=== PATIENT | female | born 1940 | race Caucasian/White ===

== ENCOUNTER 2016-03-31 10:56 | Outpatient (CLI) | payer MEDICARE, OTHER | END 2016-03-31 10:57 | disposition home or self-care (01) | DX: Z12.31 Encounter for screening mammogram for malignant neoplasm of breast (principal) ==

== ENCOUNTER 2016-07-26 11:03 | Outpatient (CLI) | payer MEDICARE, OTHER | END 2016-07-26 11:04 | disposition short-term general hospital (02) | DX: R41.82 Altered mental status, unspecified (principal) | CPT/HCPCS: A0170; A0425; A0429 ==

== ENCOUNTER 2016-09-21 11:07 | Outpatient (CLI) | payer MEDICARE, OTHER | END 2016-09-21 11:08 | disposition short-term general hospital (02) | LOC: EMS 11:07 | PROVIDERS: ATTEND Surgery | DX: R53.1 Weakness (principal); R20.0 Anesthesia of skin; R47.9 Unspecified speech disturbances | CPT/HCPCS: A0170; A0425; A0429 ==

== ENCOUNTER 2016-09-25 09:47 | Outpatient (CLI) | payer MEDICARE, OTHER ==
[2016-09-25 18:06] LABS: CALCIUM 9.3 mg/dL (8.5-10.3); POTASSIUM 4.4 mmol/L (3.5-5.0)
== END 2016-09-25 09:48 | disposition home or self-care (01) ==
LOC: LAB.F 09:47
PROVIDERS: ATTEND Internal Medicine
DX: E87.6 Hypokalemia (principal); I10 Essential (primary) hypertension; F41.8 Other specified anxiety disorders; I63.40 Cerebral infarction due to embolism of unspecified cerebral artery
CPT/HCPCS: 36415; 80048

== ENCOUNTER 2016-10-16 09:00 | Outpatient (CLI) | payer MEDICARE, OTHER ==
[2016-10-16 18:00] LABS: ALBUMIN/GLOBULIN RATIO 1.2 (1.0-2.2); BILIRUBIN,TOTAL 1.2 mg/dL (0.2-1.0); CALCIUM 9.2 mg/dL (8.5-10.3); CREATININE 0.7 mg/dL (0.4-1.0); POTASSIUM 3.7 mmol/L (3.5-5.0); TOTAL PROTEIN 6.7 g/dL (6.7-8.2)
== END 2016-10-16 09:01 | disposition home or self-care (01) ==
LOC: LAB.F 09:00
PROVIDERS: ATTEND Physician Assistant Medical
DX: E87.6 Hypokalemia (principal)
CPT/HCPCS: 36415; 80053

== ENCOUNTER 2016-10-28 07:12 | Outpatient (CLI) | payer MEDICARE, OTHER ==
[2016-11-05 11:26] LABS: TEST RESULT REPORT (())
== END 2016-10-28 07:13 | disposition home or self-care (01) ==
LOC: LAB.F 07:12
PROVIDERS: ATTEND Internal Medicine
DX: D68.9 Coagulation defect, unspecified (principal); I63.40 Cerebral infarction due to embolism of unspecified cerebral artery
CPT/HCPCS: 36415; 81599; 85598; 85613; 85730; 86146; 86147

== ENCOUNTER 2016-11-12 08:00 | Outpatient (CLI) | payer MEDICARE, OTHER ==
[2016-11-12 12:36] LABS: ALBUMIN/GLOBULIN RATIO 1.3 (1.0-2.2); BILIRUBIN,TOTAL 1.1 mg/dL (0.2-1.0); CALCIUM 9.4 mg/dL (8.5-10.3); CREATININE 0.6 mg/dL (0.4-1.0); POTASSIUM 3.9 mmol/L (3.5-5.0); TOTAL PROTEIN 6.9 g/dL (6.7-8.2)
== END 2016-11-12 08:01 | disposition home or self-care (01) ==
LOC: LAB.F 08:00
PROVIDERS: ATTEND Physician Assistant Medical
DX: E87.6 Hypokalemia (principal)
CPT/HCPCS: 36415; 80053

== ENCOUNTER 2016-11-16 17:05 | Outpatient (CLI) | payer MEDICARE, OTHER ==
--- NOTE | 2016-11-17 09:07 | Ultrasound Report ---
EXAM: RIGHT LOWER EXTREMITY VENOUS ULTRASOUND EXAM DATE: 11/16/2016 05:08 PM. CLINICAL HISTORY: PAIN IN RIGHT LOWER LIMB. COMPARISON: None. TECHNIQUE: Real-time sonographic vascular imaging was performed by the well cleaner through the lower extremity utilizing both color-flow and Doppler spectral analysis. Multiple marketing development representative static adi ges were saved for review. FINDINGS: Common Femoral Vein (CFV): Normal. CFV-GSV Junction: Normal. Profunda Femoral Vein (PFV): Normal. Femoral Vein (FV) Prox: Normal. Femoral Vein (FV) Mid: Normal. Femoral Vein (FV) Dist: Normal. Popliteal Vein: Normal. Posterior Tibial Veins: Normal. Peroneal Veins: Normal. Contralateral Side CFV: Normal. Other: None. IMPRESSION: No evidence for deep venous thrombosis in the right lower extremity. [facility] Referring Provider Line: [phone] SITE ID: [id number]
== END 2016-11-16 17:06 | disposition home or self-care (01) ==
LOC: DI 17:05
PROVIDERS: ATTEND Physician Assistant Medical
DX: M79.604 Pain in right leg (principal)

== ENCOUNTER 2017-01-01 08:36 | Outpatient (CLI) | payer MEDICARE, OTHER ==
[2017-01-01 11:46] LABS: ALBUMIN/GLOBULIN RATIO 1.1 (1.0-2.2); BILIRUBIN,TOTAL 0.6 mg/dL (0.2-1.0); CALCIUM 9.7 mg/dL (8.5-10.3); CREATININE 0.6 mg/dL (0.4-1.0); POTASSIUM 3.7 mmol/L (3.5-5.0); TOTAL PROTEIN 7.3 g/dL (6.7-8.2)
== END 2017-01-01 08:37 | disposition home or self-care (01) ==
LOC: LAB.F 08:36
PROVIDERS: ATTEND Physician Assistant Medical
DX: Z86.39 Personal history of other endocrine, nutritional and metabolic disease (principal); I48.4 Atypical atrial flutter; I10 Essential (primary) hypertension
CPT/HCPCS: 36415; 80053; 85610

== ENCOUNTER 2017-01-13 10:47 | Outpatient (CLI) | payer MEDICARE, OTHER | END 2017-01-13 10:48 | disposition home or self-care (01) | LOC: LAB.F 10:47 | PROVIDERS: ATTEND Physician Assistant Medical | DX: Z79.01 Long term (current) use of anticoagulants (principal) | CPT/HCPCS: 85610 ==

== ENCOUNTER 2017-01-18 08:56 | Outpatient (CLI) | payer MEDICARE, OTHER | END 2017-01-18 08:57 | disposition home or self-care (01) | LOC: LAB.F 08:56 | PROVIDERS: ATTEND Physician Assistant Medical | DX: Z79.01 Long term (current) use of anticoagulants (principal) | CPT/HCPCS: 85610 ==

== ENCOUNTER 2017-03-09 08:49 | Outpatient (CLI) | payer MEDICARE, OTHER | END 2017-03-09 08:50 | disposition home or self-care (01) | LOC: LAB.F 08:49 | PROVIDERS: ATTEND Physician Assistant Medical | DX: E03.9 Hypothyroidism, unspecified (principal) | CPT/HCPCS: 36415; 84443; 84481 ==

== ENCOUNTER 2017-03-10 10:04 | Outpatient (CLI) | payer MEDICARE, OTHER | END 2017-03-10 10:05 | disposition home or self-care (01) | LOC: LAB.F 10:04 | PROVIDERS: ATTEND Physician Assistant Medical | DX: Z53.9 Procedure and treatment not carried out, unspecified reason (principal) ==

== ENCOUNTER 2017-03-12 08:51 | Outpatient (CLI) | payer MEDICARE, OTHER | END 2017-03-12 08:52 | disposition home or self-care (01) | LOC: LAB.F 08:51 | PROVIDERS: ATTEND Physician Assistant Medical | DX: E55.9 Vitamin D deficiency, unspecified (principal) | CPT/HCPCS: 36415; 82306 ==

== ENCOUNTER 2017-06-03 07:16 | Outpatient (CLI) | payer MEDICARE, OTHER ==
[2017-06-03 10:25] LABS: BASOPHILS % (AUTO) 0.8 %; EOSINOPHILS # (AUTO) 0.1 10^3/uL (0.0-0.7); EOSINOPHILS % (AUTO) 2.6 %; HGB - HEMOGLOBIN 13.8 g/dL (12.0-16.0); LYMPHOCYTES # (AUTO) 1.4 10^3/uL (1.5-3.5); LYMPHOCYTES % (AUTO) 35.6 %; MEAN CORPUSCULAR HEMOGLOBIN 31.2 pg (27.0-31.0); MEAN CORPUSCULAR VOLUME 91.9 fL (81.0-99.0); MEAN PLATELET VOLUME 8.5 fL (7.9-10.8); MONOCYTES # (AUTO) 0.3 10^3/uL (0.0-1.0); MONOCYTES % (AUTO) 8.7 %; NEUTROPHILS % (AUTO) 52.3 %; PLT - PLATELET COUNT 129 10^3/uL (130-450); RED BLOOD COUNT 4.42 10^6/uL (4.20-5.40); RED CELL DISTRIBUTION WIDTH 12.9 % (12.0-15.0); WHITE BLOOD COUNT 3.9 x10^3/uL (4.8-10.8)
[2017-06-03 10:40] LABS: ALBUMIN 3.5 g/dL (3.2-5.5); ALBUMIN/GLOBULIN RATIO 1.1 (1.0-2.2); ALKALINE PHOSPHATASE 83 IU/L (42-121); ALT ALANINE AMINOTRANSFERASE 20 IU/L (10-60); AST ASPARTATE AMINOTRANSFERASE 30 IU/L (10-42); BILIRUBIN,TOTAL 0.7 mg/dL (0.2-1.0); BUN - BLOOD UREA NITROGEN 16 mg/dL (6-20); CALCIUM 9.2 mg/dL (8.5-10.3); CARBON DIOXIDE - CO2 28 mmol/L (21-32); CHLORIDE 107 mmol/L (101-111); CHOL/HDL RATIO 2.8 (<4.4); CHOLESTEROL 130 mg/dL; CREATININE 0.6 mg/dL (0.4-1.0); GFR - MDRD 98 (>89); GLUCOSE 100 mg/dL (70-100); HDL CHOLESTEROL 46 mg/dL; LDL CHOLESTEROL,CALCULATED 68 mg/dL; LDL/HDL RATIO 1.5 (<4.4); SODIUM 143 mmol/L (135-145); TOTAL PROTEIN 6.8 g/dL (6.7-8.2); VLDL CHOLESTEROL 16 mg/dL
[2017-06-03 10:48] LABS: THYROID STIMULATING HORMONE < 0.08 uIU/mL (0.34-5.60)
[2017-06-03 12:10] LABS: FREE T4 (FREE THYROXINE) 1.45 ng/dL (0.58-1.64)
== END 2017-06-03 07:17 | disposition home or self-care (01) ==
LOC: LAB.F 07:16
PROVIDERS: ATTEND Physician Assistant Medical
DX: Z86.39 Personal history of other endocrine, nutritional and metabolic disease (principal); E78.5 Hyperlipidemia, unspecified; E03.9 Hypothyroidism, unspecified; E04.1 Nontoxic single thyroid nodule; D68.9 Coagulation defect, unspecified; I63.40 Cerebral infarction due to embolism of unspecified cerebral artery
CPT/HCPCS: 36415; 80053; 80061; 83721; 84439; 84443; 85025

== ENCOUNTER 2017-08-25 08:27 | Outpatient (CLI) | payer MEDICARE, OTHER ==
[2017-08-25 10:44] LABS: BASOPHILS % (AUTO) 0.9 %; EOSINOPHILS # (AUTO) 0.1 10^3/uL (0.0-0.7); EOSINOPHILS % (AUTO) 2.5 %; HGB - HEMOGLOBIN 14.2 g/dL (12.0-16.0); LYMPHOCYTES # (AUTO) 1.4 10^3/uL (1.5-3.5); LYMPHOCYTES % (AUTO) 28.4 %; MEAN CORPUSCULAR HEMOGLOBIN 31.3 pg (27.0-31.0); MEAN CORPUSCULAR HGB CONC 33.9 g/dL (32.0-36.0); MEAN CORPUSCULAR VOLUME 92.2 fL (81.0-99.0); MEAN PLATELET VOLUME 8.4 fL (7.9-10.8); MONOCYTES # (AUTO) 0.4 10^3/uL (0.0-1.0); MONOCYTES % (AUTO) 7.8 %; NEUTROPHILS % (AUTO) 60.4 %; PLT - PLATELET COUNT 140 10^3/uL (130-450); RED BLOOD COUNT 4.54 10^6/uL (4.20-5.40); RED CELL DISTRIBUTION WIDTH 13.5 % (12.0-15.0); WHITE BLOOD COUNT 4.9 x10^3/uL (4.8-10.8)
[2017-08-25 11:09] LABS: ALBUMIN 3.8 g/dL (3.2-5.5); ALBUMIN/GLOBULIN RATIO 1.2 (1.0-2.2); BILIRUBIN,TOTAL 1.1 mg/dL (0.2-1.0); CALCIUM 9.1 mg/dL (8.5-10.3); CREATININE 0.6 mg/dL (0.4-1.0); TOTAL PROTEIN 7.1 g/dL (6.7-8.2)
== END 2017-08-25 08:28 | disposition home or self-care (01) ==
LOC: LAB.F 08:27
PROVIDERS: ATTEND Physician Assistant Medical
DX: E03.9 Hypothyroidism, unspecified (principal); Z79.01 Long term (current) use of anticoagulants; Z86.39 Personal history of other endocrine, nutritional and metabolic disease
CPT/HCPCS: 36415; 80053; 84443; 85025

== ENCOUNTER 2017-09-13 14:23 | Outpatient (CLI) | payer MEDICARE, OTHER ==
[2017-09-13 18:05] LABS: BASOPHILS # (AUTO) 0.1 10^3/uL (0.0-0.1); BASOPHILS % (AUTO) 0.7 %; EOSINOPHILS # (AUTO) 0.1 10^3/uL (0.0-0.7); EOSINOPHILS % (AUTO) 1.1 %; HGB - HEMOGLOBIN 14.6 g/dL (12.0-16.0); LYMPHOCYTES # (AUTO) 2.4 10^3/uL (1.5-3.5); LYMPHOCYTES % (AUTO) 33.3 %; MEAN CORPUSCULAR HEMOGLOBIN 32.2 pg (27.0-31.0); MEAN CORPUSCULAR VOLUME 94.7 fL (81.0-99.0); MEAN PLATELET VOLUME 8.3 fL (7.9-10.8); MONOCYTES # (AUTO) 0.7 10^3/uL (0.0-1.0); MONOCYTES % (AUTO) 10.2 %; NEUTROPHILS % (AUTO) 54.7 %; PLT - PLATELET COUNT 159 10^3/uL (130-450); RED BLOOD COUNT 4.52 10^6/uL (4.20-5.40); RED CELL DISTRIBUTION WIDTH 13.4 % (12.0-15.0); WHITE BLOOD COUNT 7.3 x10^3/uL (4.8-10.8)
[2017-09-13 18:21] LABS: CALCIUM 9.3 mg/dL (8.5-10.3); CREATININE 0.8 mg/dL (0.4-1.0)
== END 2017-09-13 14:24 | disposition home or self-care (01) ==
LOC: LAB.F 14:23
PROVIDERS: ATTEND Internal Medicine
DX: G45.9 Transient cerebral ischemic attack, unspecified (principal)
CPT/HCPCS: 36415; 80048; 85025

== ENCOUNTER 2017-09-21 09:33 | Outpatient (CLI) | END 2017-09-21 09:34 | disposition home or self-care (01) | CPT/HCPCS: 70544; 70553; A9585 ==

== ENCOUNTER 2017-10-25 11:01 | Outpatient (CLI) | payer MEDICARE, OTHER | END 2017-10-25 11:02 | disposition home or self-care (01) | LOC: SC 11:01 | PROVIDERS: ATTEND Internal Medicine Pulmonary Disease | DX: G47.33 Obstructive sleep apnea (adult) (pediatric) (principal) | CPT/HCPCS: 99203; G0463; 99212 ==

== ENCOUNTER 2017-11-15 19:11 | Outpatient (CLI) | payer MEDICARE, OTHER | END 2017-11-15 19:12 | disposition home or self-care (01) | LOC: SC 19:11 | PROVIDERS: ATTEND Internal Medicine Pulmonary Disease | DX: G47.33 Obstructive sleep apnea (adult) (pediatric) (principal) | CPT/HCPCS: 95810 ==

== ENCOUNTER 2018-01-03 09:07 | Outpatient (CLI) | payer MEDICARE, OTHER | END 2018-01-03 09:08 | disposition home or self-care (01) | LOC: SC 09:07 | PROVIDERS: ATTEND Nurse Practitioner Family | DX: R06.83 Snoring (principal) | CPT/HCPCS: 99214; G0463; 99212 ==

== ENCOUNTER 2018-05-31 09:55 | Outpatient (CLI) | payer MEDICARE, OTHER ==
--- NOTE | 2018-05-31 11:17 | XRAY Report ---
Reason: HIP JOINT PAIN,RIGHT Procedure Date: 05/31/2018 Accession Number: [id number] / [id number] Procedure: XR - Hip w/Pelvis 2-3V RT CPT Code: FULL RESULT: EXAM: RIGHT HIP RADIOGRAPHY EXAM DATE: 05/31/2018 10:19 AM. CLINICAL HISTORY: Hip joint pain, right. COMPARISON: None. TECHNIQUE: 2 views. FINDINGS: Bones: Normal. No fractures or bone lesion. Joints: Moderate to advanced right femoral acetabular joint space narrowing, similar to 2016. Left total hip arthroplasty, unchanged appearance. Soft Tissues: Normal. No soft tissue swelling. 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 [facility]
== END 2018-05-31 09:56 | disposition home or self-care (01) ==
LOC: DI 09:55
PROVIDERS: ATTEND Physician Assistant Medical
DX: M16.11 Unilateral primary osteoarthritis, right hip (principal)

== ENCOUNTER 2018-06-06 07:34 | Outpatient (CLI) | payer MEDICARE, OTHER ==
[2018-06-06 10:50] LABS: BASOPHILS % (AUTO) 0.8 %; EOSINOPHILS # (AUTO) 0.1 10^3/uL (0.0-0.7); EOSINOPHILS % (AUTO) 2.5 %; HGB - HEMOGLOBIN 14.6 g/dL (12.0-16.0); LYMPHOCYTES # (AUTO) 1.5 10^3/uL (1.5-3.5); LYMPHOCYTES % (AUTO) 32.1 %; MEAN CORPUSCULAR HEMOGLOBIN 32.5 pg (27.0-31.0); MEAN CORPUSCULAR HGB CONC 34.9 g/dL (32.0-36.0); MEAN CORPUSCULAR VOLUME 93.2 fL (81.0-99.0); MEAN PLATELET VOLUME 8.2 fL (7.9-10.8); MONOCYTES # (AUTO) 0.5 10^3/uL (0.0-1.0); MONOCYTES % (AUTO) 10.6 %; NEUTROPHILS # (AUTO) 2.5 10^3/uL (1.5-6.6); PLT - PLATELET COUNT 134 10^3/uL (130-450); RED BLOOD COUNT 4.49 10^6/uL (4.20-5.40); RED CELL DISTRIBUTION WIDTH 13.1 % (12.0-15.0); WHITE BLOOD COUNT 4.6 x10^3/uL (4.8-10.8)
[2018-06-06 10:52] LABS: ALBUMIN 3.7 g/dL (3.2-5.5); ALBUMIN/GLOBULIN RATIO 1.1 (1.0-2.2); ALKALINE PHOSPHATASE 75 IU/L (42-121); ALT ALANINE AMINOTRANSFERASE 48 IU/L (10-60); AST ASPARTATE AMINOTRANSFERASE 63 IU/L (10-42); BILIRUBIN,TOTAL 0.7 mg/dL (0.2-1.0); BUN - BLOOD UREA NITROGEN 23 mg/dL (6-20); CALCIUM 9.2 mg/dL (8.5-10.3); CARBON DIOXIDE - CO2 30 mmol/L (21-32); CHLORIDE 98 mmol/L (101-111); CHOL/HDL RATIO 2.9 (<4.4); CHOLESTEROL 114 mg/dL; CREATININE 0.7 mg/dL (0.4-1.0); GFR - MDRD 82 (>89); GLUCOSE 102 mg/dL (70-100); HDL CHOLESTEROL 40 mg/dL; LDL CHOLESTEROL,CALCULATED 51 mg/dL; LDL/HDL RATIO 1.3 (<4.4); SODIUM 139 mmol/L (135-145); TOTAL PROTEIN 7.1 g/dL (6.7-8.2); VLDL CHOLESTEROL 23 mg/dL
== END 2018-06-06 07:35 | disposition home or self-care (01) ==
LOC: LAB.F 07:34
PROVIDERS: ATTEND Physician Assistant Medical
DX: I10 Essential (primary) hypertension (principal); E78.5 Hyperlipidemia, unspecified; E03.9 Hypothyroidism, unspecified
CPT/HCPCS: 36415; 80053; 80061; 83721; 84443; 85025

== ENCOUNTER 2018-06-20 06:59 | Outpatient (CLI) | payer MEDICARE, OTHER | END 2018-06-20 07:00 | disposition home or self-care (01) | LOC: LAB.F 06:59 | PROVIDERS: ATTEND Physician Assistant Medical | DX: E87.6 Hypokalemia (principal) | CPT/HCPCS: 36415; 84132 ==

== ENCOUNTER 2019-01-25 08:42 | Outpatient (CLI) | payer MEDICARE, OTHER | END 2019-01-25 23:59 | disposition home or self-care (01) | LOC: LAB.R 08:42 | PROVIDERS: ATTEND Physician Assistant Medical | DX: N39.0 Urinary tract infection, site not specified (principal); R30.0 Dysuria | CPT/HCPCS: 87086 ==

== ENCOUNTER 2019-01-25 09:25 | Outpatient (CLI) | payer MEDICARE, OTHER ==
[2019-01-25 17:53] LABS: BASOPHILS % (AUTO) 0.6 %; EOSINOPHILS # (AUTO) 0.1 10^3/uL (0.0-0.7); EOSINOPHILS % (AUTO) 1.7 %; HGB - HEMOGLOBIN 14.3 g/dL (12.0-16.0); LYMPHOCYTES # (AUTO) 1.5 10^3/uL (1.5-3.5); LYMPHOCYTES % (AUTO) 22.8 %; MEAN CORPUSCULAR HEMOGLOBIN 31.2 pg (27.0-31.0); MEAN CORPUSCULAR HGB CONC 32.1 g/dL (32.0-36.0); MEAN CORPUSCULAR VOLUME 97.4 fL (81.0-99.0); MEAN PLATELET VOLUME 10.9 fL (7.9-10.8); MONOCYTES # (AUTO) 0.4 10^3/uL (0.0-1.0); MONOCYTES % (AUTO) 5.9 %; NEUTROPHILS # (AUTO) 4.4 10^3/uL (1.5-6.6); NEUTROPHILS % (AUTO) 68.7 %; PLT - PLATELET COUNT 151 10^3/uL (130-450); RED BLOOD COUNT 4.58 10^6/uL (4.20-5.40); RED CELL DISTRIBUTION WIDTH 12.8 % (12.0-15.0); WHITE BLOOD COUNT 6.4 x10^3/uL (4.8-10.8)
[2019-01-25 18:25] LABS: ALBUMIN 3.7 g/dL (3.2-5.5); BILIRUBIN,TOTAL 0.9 mg/dL (0.2-1.0); CREATININE 0.7 mg/dL (0.4-1.0); TOTAL PROTEIN 7.4 g/dL (6.7-8.2)
[2019-01-25 18:36] LABS: CALCIUM 9.3 mg/dL (8.5-10.3)
== END 2019-01-25 09:26 | disposition home or self-care (01) ==
LOC: LAB.S 09:25
PROVIDERS: ATTEND Physician Assistant Medical
DX: I10 Essential (primary) hypertension (principal); E03.9 Hypothyroidism, unspecified; R42 Dizziness and giddiness; N39.0 Urinary tract infection, site not specified; R30.0 Dysuria
CPT/HCPCS: 36415; 80053; 81002; 84443; 85025; 87086

== ENCOUNTER 2019-02-02 07:03 | Outpatient (CLI) | payer MEDICARE, OTHER ==
[2019-02-02 10:54] LABS: HB2 TOTAL 15.2 g/dL; HEMOGLOBIN A1C 0.62 g/dL; HEMOGLOBIN A1C % 5.9 % (4.6-6.2)
== END 2019-02-02 07:04 | disposition home or self-care (01) ==
LOC: LAB.S 07:03
PROVIDERS: ATTEND Physician Assistant Medical
DX: R73.01 Impaired fasting glucose (principal)
CPT/HCPCS: 36415; 83036

== ENCOUNTER 2019-09-05 15:18 | Outpatient (CLI) | payer MEDICARE, OTHER | END 2019-09-05 15:19 | disposition critical access hospital (66) | LOC: EMS 15:18 | PROVIDERS: ATTEND Surgery | DX: R04.0 Epistaxis (principal); Z79.01 Long term (current) use of anticoagulants | CPT/HCPCS: A0425; A0429 ==

== ENCOUNTER 2019-09-05 15:48 | Emergency (ER) | payer MEDICARE, OTHER ==
--- NOTE | 2019-09-05 17:06 | ED Physician Documentation ---
PD HPI HEENT - Stated complaint Stated Complaint: NOSE BLEED - Chief complaint Chief Complaint: Heent - History obtained from History obtained from: Patient - History of Present Illness Timing - onset: Today Timing - duration: Minutes (90) Timing - details: Abrupt onset Pain level max: 0 Pain level now: 0 Location: Nose Improves: Other (pressure) - Additional information Additional information: 78-year-old female presents to the emergency department for chief complaint of left-sided nosebleed. Patient reports that about 90 minutes prior to coming to the emergency department she felt pressure in her left sinus. She attempted to blow her nose very gently but then began bleeding. She states that at home she held pressure for nearly an hour but the bleeding would not stop therefore she summoned EMS. Bleeding was successfully controlled in route to the emergency department. Patient is on Xarelto. She has a history of a CVA about 4 years ago. Patient denies any unusual bruising or bleedingBruising or bleeding when she brushes her no mouth. Review of Systems Constitutional: denies: Fever, Chills Eyes: denies: Loss of vision, Decreased vision Ears: denies: Loss of hearing, Ear pain Nose: reports: Epistaxis Throat: denies: Dental pain / toothache, Oral lesions / sores, Sore throat Cardiac: denies: Chest pain / pressure, Palpitations Respiratory: denies: Dyspnea, Cough GI: denies: Abdominal Pain, Abdominal Swelling PD PAST MEDICAL HISTORY - Past Medical History Past Medical History: Yes Cardiovascular: Hypertension Endocrine/Autoimmune: HyPERthyroidism - Past Surgical History Past Surgical History: Yes General: Appendectomy Ortho: Hip replacement, ACL reconstruction, 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 - Present Medications Home Medications: Ambulatory Orders Medication Instructions Recorded Confirmed Cyclosporine [Restasis] 1 drop EACHEYE ONCE 10/07/14 10/07/14 Duloxetine HCl [Cymbalta] 30 mg PO DAILY 10/07/14 10/07/14 Levothyroxine [Synthroid] 150 mcg PO ONCE 10/07/14 10/07/14 Metoprolol Succinate 50 mg PO DAILY 10/07/14 10/07/14 - Allergies Allergies/Adverse Reactions: Allergies Allergy/AdvReac Type Severity Reaction Status Date / Time aspirin Allergy Anaphylaxis Verified 09/05/19 15:51 Penicillins Allergy Rash Verified 09/05/19 15:51 - Social History Does the pt smoke?: No Smoking Status: Never smoker Does the pt drink ETOH?: No Does the pt have substance abuse?: No - Immunizations Immunizations are current?: Yes - POLST Patient has POLST: No PD ED PE NORMAL - General General: Alert and oriented X 3, No acute distress, Well developed/nourished - HEENT HEENT: Atraumatic, Pharynx benign, Other (no bleeding noted ain the posterior OP. No septal hematoma on ENT exam. No friability of nasal tissue. ) - Neck Neck: Supple, no meningeal sign, No adenopathy - Cardiac Cardiac: RRR, No murmur - Respiratory Respiratory: No respiratory distress - Abdomen Abdomen: Normal bowel sounds - Derm Derm: Normal color, Warm and dry, No rash, Other (no abnormal bruising, bleeding or petechiae ) - Neuro Neuro: Alert and oriented X 3, continuous pickling line pickler 2-12 intact, No motor deficit, No sensory deficit Results - Vitals Vitals: Vital Signs - 24 hr 09/05/19 15:52 Temperature 36.8 C Heart Rate 64 Respiratory 18 Rate Blood Pressure 130/73 O2 Saturation 99 Oxygen O2 Source Room air PD MEDICAL DECISION MAKING - ED course Complexity details: re-evaluated patient, d/w patient ED course: 78-year-old female presented to the emergency department with chief complaint of left-sided nosebleed. Patient had to summon EMS as the bleeding did not stop after applying pressure for nearly 1 hour at home. However EMS was able to get the nosebleed to successfully stop. Patient has been observed in the emergency department for nearly 2 hours now. She has had no further bleeding event. Her posterior oropharynx is clear with no signs of active bleeding.Patient is taking Xarelto given her history of previous CVA but she has no systemic signs or symptoms of a bleeding pathology. Advise close follow-up with her primary care doctor within the next week. Patient was advised that she should avoid blowing her nose for the next 4 to 5 days. Return precautions were discussed for repeat nasal bleed. Departure - Departure Clinical Impression: Epistaxis not due to trauma Condition: Stable Record reviewed to determine appropriate education?: Yes Instructions: Nosebleed Comments: Alejandra please schedule follow-up of this emergency department visit with your primary doctor within the next 1 week. For the next 4 to 5 days attempt to avoid Nose blowing. If you do have a return of the nosebleed hold gentle pressure for 30 minutes applying ice may be helpful if the bleeding does not stop return to the emergency department.
[2019-09-05 17:58] VITALS: BP 148/78
== END 2019-09-05 17:58 | disposition home or self-care (01) ==
LOC: EDUNIT# → ED 15:48
DX: R04.0 Epistaxis (principal); Z86.73 Personal history of transient ischemic attack (TIA), and cerebral infarction without residual deficits; Z79.01 Long term (current) use of anticoagulants; I10 Essential (primary) hypertension
CPT/HCPCS: 99283; 99284

== ENCOUNTER 2019-10-17 16:22 | Emergency (ER) | payer MEDICARE, OTHER ==
[2019-10-17] MEDS ORDERED: TRANEXAMIC ACID 1,000 MG/10 ML VIAL NAS STA (18:45)
[2019-10-17] MEDS ORDERED: OXYMETAZOLINE HCL 100 SPRAYS BOTTLE NAS STA (18:45)
--- NOTE | 2019-10-17 18:53 | ED Physician Documentation ---
PD HPI HEENT - Stated complaint Stated Complaint: NOSEBLEED/BLOODTHINNER - Chief complaint Chief Complaint: Heent - History obtained from History obtained from: Patient - History of Present Illness Timing - onset: How many days ago (3) Timing - details: Abrupt onset Location: Nose - Additional information Additional information: 79-year-old female who is on Pradaxa for anticoagulation secondary to a previous history of stroke here with 3 days of intermittent left nasal bleed. However she states that today it has bled continuously unless she has a nasal clamp on. I saw her for similar a number of weeks ago however following simple clamping in the ED she had no further bleeding and was discharged home. She denies any recent falls or trauma. She has no unexpected bruising or bleeding on her body feces urine or gums. 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 - Present Medications Home Medications: Ambulatory Orders Medication Instructions Recorded Confirmed Cyclosporine [Restasis] 1 drop EACHEYE ONCE 10/07/14 10/07/14 Duloxetine HCl [Cymbalta] 30 mg PO DAILY 10/07/14 10/07/14 Levothyroxine [Synthroid] 150 mcg PO ONCE 10/07/14 10/07/14 Metoprolol Succinate 50 mg PO DAILY 10/07/14 10/07/14 - Allergies Allergies/Adverse Reactions: Allergies Allergy/AdvReac Type Severity Reaction Status Date / Time aspirin Allergy Anaphylaxis Verified 10/17/19 16:44 Penicillins Allergy Rash Verified 10/17/19 16:44 - Social History Does the pt smoke?: No Smoking Status: Never smoker Does the pt drink ETOH?: No Does the pt have substance abuse?: No - Immunizations Immunizations are current?: Yes - POLST Patient has POLST: No PD ED PE NORMAL - General General: Alert and oriented X 3, No acute distress, Well developed/nourished - HEENT HEENT: Moist mucous membranes, Other (bleeding in left anterior nares; uinable to visualize source) - Neuro Neuro: Alert and oriented X 3, parts counter salesperson 2-12 intact, No motor deficit, No sensory deficit Eye Opening: Spontaneous Motor: Obeys Commands Verbal: Oriented GCS Score: 15 Results - Vitals Vitals: Vital Signs - 24 hr 10/17/19 10/17/19 10/17/19 16:44 18:06 20:14 Temperature 36.5 C 36.8 C Heart Rate 64 75 65 Respiratory 16 18 22 Rate Blood Pressure 135/62 H 168/79 H 157/96 H O2 Saturation 96 97 100 Oxygen O2 Source Room air Procedures - Epistaxis Site: Left Preparation: Clots removed, Afrin, Other (transemic acid) Treatment: Ant post rhinorocket, Packing inserted Other: Referred to ENT (Patient with noted left nares epistaxis. Initially tried to control bleed by saturating gauze with Afrin and trans-Elise acid. However bleeding did not stop. Therefore a 7.5 rocket was placed into the left nares patient continued to bleed around this.) PD MEDICAL DECISION MAKING - ED course Complexity details: reviewed results, d/w patient ED course: 79-year-old female here with left nares epistaxis. She is on Xarelto due to history of previous stroke. - Multiple attempts were made at the bedside to stop the bleeding including the use of Afrin, transemic acid as well as posterior nasal packing. Patient continued to bleed around this packing. - I spoke with the ENT surgeon on-call at [facility] Dr. Tam. He agreed that patient should be transported for further evaluation and treatment. I also spoke with an accepting provider in the emergency department nurse practitioner who has accepted the patient on transfer. Pt will be transported via BLS and is hemodynamically stable Departure - Departure Disposition: 02 Transfer Acute Care Hosp Clinical Impression: Epistaxis Condition: Stable Comments: Alejandra we are going to transport you to [facility]. Dr. Tam of ear nose throat will be evaluating you there to help get the nosebleed to stop
[2019-10-17] MEDS ORDERED: BACITRACIN ZINC OINT 1 PACKET TOP STA (19:16)
[2019-10-17 20:14] VITALS: BP 157/96
== END 2019-10-17 21:44 | disposition short-term general hospital (02) ==
LOC: ED 16:22
DX: R04.0 Epistaxis (principal); Z79.02 Long term (current) use of antithrombotics/antiplatelets; Z86.73 Personal history of transient ischemic attack (TIA), and cerebral infarction without residual deficits; I10 Essential (primary) hypertension
CPT/HCPCS: 30903; 30905; 99283; 99285; A9270

== ENCOUNTER 2019-10-17 21:47 | Outpatient (CLI) | payer MEDICARE, OTHER | END 2019-10-17 21:48 | disposition short-term general hospital (02) | LOC: EMS 21:47 | PROVIDERS: ATTEND Surgery | DX: R04.0 Epistaxis (principal); Z79.01 Long term (current) use of anticoagulants | CPT/HCPCS: A0425; A0428 ==

== ENCOUNTER 2020-05-20 12:55 | Outpatient (CLI) | payer MEDICARE, OTHER ==
[2020-05-20 14:53] LABS: ALBUMIN 3.6 g/dL (3.2-5.5); ALBUMIN/GLOBULIN RATIO 1.2 (1.0-2.2); BILIRUBIN,TOTAL 0.8 mg/dL (0.2-1.0); CALCIUM 9.3 mg/dL (8.5-10.3); CREATININE 0.7 mg/dL (0.4-1.0); TOTAL PROTEIN 6.5 g/dL (6.7-8.2)
[2020-05-20 15:02] LABS: HEMOGLOBIN A1c% 5.5 % (4.27-6.07)
== END 2020-05-20 12:56 | disposition home or self-care (01) ==
LOC: LAB.S 12:55
PROVIDERS: ATTEND Physician Assistant
DX: E87.6 Hypokalemia (principal); R73.01 Impaired fasting glucose; Z79.899 Other long term (current) drug therapy; R79.89 Other specified abnormal findings of blood chemistry; F41.9 Anxiety disorder, unspecified; F32.9 Major depressive disorder, single episode, unspecified
CPT/HCPCS: 36415; 80053; 83036

== ENCOUNTER 2020-05-21 07:00 | Outpatient (CLI) | payer MEDICARE, OTHER ==
[2020-05-21 16:30] LABS: CREATININE,URINE 89.6 mg/dL; MICROALBUM/CREATININE RATIO,UR 2.2 ug/mg (<30.0); MICROALBUMIN,URINE 0.2 mg/dL (0-300.0)
== END 2020-05-21 23:59 | disposition home or self-care (01) ==
LOC: LAB.R 07:00
PROVIDERS: ATTEND Physician Assistant
DX: E87.6 Hypokalemia (principal); R73.01 Impaired fasting glucose; R79.89 Other specified abnormal findings of blood chemistry; F41.9 Anxiety disorder, unspecified; F32.9 Major depressive disorder, single episode, unspecified; Z79.899 Other long term (current) drug therapy
CPT/HCPCS: 82043; 82570

== ENCOUNTER 2020-05-27 08:00 | Outpatient (CLI) | payer MEDICARE, OTHER ==
--- NOTE | 2020-05-27 18:51 | XRAY Report ---
PROCEDURE: Ribs w/PA Chest LT INDICATIONS: RIB PAIN, LEFT SIDED TECHNIQUE: 2 views of the left ribs were acquired, along with a single view chest. COMPARISON: None. FINDINGS: Surgical changes and devices: There is a leadless pacer projecting over the heart. Bones and chest wall: There is a moderately displaced fracture of the left posterior seventh rib. No suspicious bony lesions. Overlying soft tissues appear unremarkable. Lungs and pleura: No pleural effusions or pneumothorax. Lungs appear clear. Mediastinum: Mediastinal contours appear normal. Heart size is normal. IMPRESSION: 1. Moderately displaced fracture of the left posterior 7th rib. 2. No evidence of pneumothorax. Reviewed by: Christo Montes MD on 05/27/2020 5:50 PM [facility] Approved by: Christo Montes MD on 05/27/2020 5:50 PM [facility] Station ID: [id number]
== END 2020-05-27 23:59 | disposition home or self-care (01) ==
LOC: DI.S 08:00
PROVIDERS: ATTEND Physician Assistant Medical
DX: S22.32XA Fracture of one rib, left side, initial encounter for closed fracture (principal)

== ENCOUNTER 2020-07-01 07:00 | Outpatient (CLI) | payer MEDICARE, OTHER ==
--- NOTE | 2020-07-01 08:39 | XRAY Report ---
PROCEDURE: Shoulder 3 View RT INDICATIONS: RIGHT SHOULDER PAIN TECHNIQUE: 3 views of the shoulder were acquired. COMPARISON: None. FINDINGS: Bones: No fractures or dislocations. Mild to moderate glenohumeral joint osteoarthritic changes are seen with joint space narrowing and subchondral sclerosis. Mild acromioclavicular joint osteophytic c hanges also seen. No suspicious bony lesions. Visualized ribs appear intact. Soft tissues: No suspicious soft tissue calcifications. 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 No shoulder fracture or dislocation. Reviewed by: Frederic Jacome MD on 07/01/2020 8:37 AM PDT Approved by: Frederic Jacome MD on 07/01/2020 8:37 AM PDT Station ID: [id number]
== END 2020-07-01 23:59 | disposition home or self-care (01) ==
LOC: DI.S 07:00
PROVIDERS: ATTEND Emergency Medicine
DX: M25.511 Pain in right shoulder (principal); M19.011 Primary osteoarthritis, right shoulder

== ENCOUNTER 2020-08-14 10:13 | Outpatient (CLI) | payer MEDICARE, OTHER ==
[2020-08-14 15:42] LABS: THYROID STIMULATING HORMONE 1.23 uIU/mL (0.34-5.60)
== END 2020-08-14 10:14 | disposition home or self-care (01) ==
LOC: LAB.S 10:13
PROVIDERS: ATTEND Internal Medicine
DX: E01.0 Iodine-deficiency related diffuse (endemic) goiter (principal)
CPT/HCPCS: 36415; 84443

== ENCOUNTER 2020-08-23 16:29 | Outpatient (CLI) | payer MEDICARE, OTHER ==
--- NOTE | 2020-08-23 22:51 | Ultrasound Report ---
PROCEDURE: Head or Neck Soft Tissue INDICATIONS: THYROMEGALY TECHNIQUE: Real-time scanning was performed of the thyroid gland, with image documentation. COMPARISON: 06/20/2013 FINDINGS: Right: Thyroid lobe measures 2.8 x 1.3 x 0.7 cm, and is homogeneous in echotexture. Left: Thyroid lobe measures 3.2 x 1 x 0.7 cm, and is homogenous in echotexture. Isthmus: 0.5 mm thick. Nodule number: One Location: Isthmus right Size: 0.8 x 0.8 x 0.5 cm. Not significant change. Composition: Solid Echogenicity: Isoechoic Shape: wider than tall. Margins: Smooth Echogenic foci: None Total points: 3 ACR TI-RADS category: TR 3, mildly suspicious Nodule number: Two Location: Right mid posterior Size: 1 x 0.8 x 0.6 cm. Not significant change. Composition: Solid Echogenicity: Isoechoic Shape: wider than tall. Margins: Smooth Echogenic foci: None Total points: 3 ACR TI-RADS category: TR 3, mildly suspicious Nodule number: Three Location: Left mid posterior Size: 0.8 x 0.5 x 0.4 cm. Not significantly changed. Composition: Solid Echogenicity: Hypoechoic Shape: wider than tall. Margins: Smooth Echogenic foci: None Total points: 4 ACR TI-RADS category: TR 4, moderately suspicious IMPRESSION: Small thyroid nodules are not significant change. No imaging follow-up required. ACR TI-RADS definitions and recommendations: TI-RADS 1 (benign): 0 points. FNA not needed. TI-RADS 2 (not suspicious): 2 points. FNA not needed. TI-RADS 3 (mildly suspicious): 3 points. ? FNA if 2.5 cm or larger, follow up if 1.5 cm or larger (at 1, 3, and 5 years). TI-RADS 4 (moderately suspicious): 4-6 points. ? FNA if 1.5 cm or larger, follow up if 1 cm or larger (at 1, 2, 3, and 5 years). TI-RADS 5 (highly suspicious): 7 points or more. ? FNA if 1 cm or larger, follow up if 0.5 cm or larger (every year for 5 years). Reviewed by: Cyril Scott MD on 08/23/2020 10:49 PM PDT Approved by: Cyril Scott MD on 08/23/2020 10:49 PM PDT Station ID: [id number]
== END 2020-08-23 16:30 | disposition home or self-care (01) ==
LOC: DI 16:29
PROVIDERS: ATTEND Internal Medicine
DX: E01.0 Iodine-deficiency related diffuse (endemic) goiter (principal)

== ENCOUNTER 2020-09-04 08:00 | Outpatient (CLI) | payer MEDICARE, OTHER | END 2020-09-04 23:59 | disposition home or self-care (01) | LOC: LAB.S 08:00 | PROVIDERS: ATTEND Physician Assistant Medical | DX: L02.214 Cutaneous abscess of groin (principal) | CPT/HCPCS: 87070; 87077; 87181; 87205 ==

== ENCOUNTER 2020-11-15 11:48 | Outpatient (CLI) | payer MEDICARE, OTHER ==
[2020-11-15 14:54] LABS: ALBUMIN 3.7 g/dL (3.2-5.5); ALBUMIN/GLOBULIN RATIO 1.2 (1.0-2.2); BILIRUBIN,TOTAL 0.8 mg/dL (0.2-1.0); CALCIUM 9.3 mg/dL (8.5-10.3); CREATININE 0.5 mg/dL (0.4-1.0); TOTAL PROTEIN 6.9 g/dL (6.7-8.2)
[2020-11-15 15:05] LABS: THYROID STIMULATING HORMONE 1.63 uIU/mL (0.34-5.60)
== END 2020-11-15 11:49 | disposition home or self-care (01) ==
LOC: LAB.S 11:48
PROVIDERS: ATTEND Internal Medicine
DX: E78.5 Hyperlipidemia, unspecified (principal); E03.9 Hypothyroidism, unspecified
CPT/HCPCS: 36415; 80053; 84443

== ENCOUNTER 2020-11-25 15:11 | Outpatient (CLI) | payer MEDICARE, OTHER ==
--- NOTE | 2020-11-25 17:24 | MRI Report ---
PROCEDURE: Shoulder RT W/O INDICATIONS: SHOULDER PAIN TECHNIQUE: Noncontrast oblique coronal T2 fast spin echo with fat saturation, oblique sagittal T1 spin echo and T2 fast spin echo with fat saturation, axial T1 spin echo and T2 fast spin echo with fat saturation t hrough the shoulder. COMPARISON: None. FINDINGS: Rotator cuff: Supraspinatus tendinopathy with partial thickness articular and bursal sided tear. No definite full-t hickness defect. Spinatus tendinopathy and mild thickening and low-grade articular and bursal surface fraying. Teres m inor tendon appears intact. Subscapularis tendon appears thickened with amorphous intrasubstance sign al changes in keeping with tendinopathy. No definite muscle atrophy although there is fatty infiltrat ion of the infraspinatus. Bones and bursae: No bone marrow contusions or fractures. Moderate acromioclavicular joint degeneration. The acromion demonstrates conventional anatomy, without an os acromiale. No definite subacromial/subdeltoid bursal fluid is present. Capsule and soft tissues: Labrum: Chronic tear or degeneration of the posterior and anteroinferior labrum. There is adjacent gl enoid rim sclerosis, and moderate glenohumeral joint degeneration with partial thickness chondral los s. Ligaments/capsule: Superior glenohumeral ligament not well seen. The inferior glenohumeral ligament a ppears intact. Long head biceps tendon: Long head biceps tendon appears intact. Rotator interval: Partial obliteration of the subcoracoid fat signal intensity. Coracohumeral ligament: Not well visualized IMPRESSION: Partial thickness rotator cuff tear as above. Chronic tear or degeneration involving the posterior and anteroinferior labrum. Rupture of the superior glenohumeral ligament and the coracohumeral ligament. These findings technica lly age indeterminate. Reviewed by: Charles Iyer MD on 11/25/2020 5:23 PM PDT Approved by: Charles Iyer MD on 11/25/2020 5:23 PM PDT Station ID: [id number]
== END 2020-11-25 15:12 | disposition home or self-care (01) ==
LOC: DI 15:11
PROVIDERS: ATTEND Internal Medicine
DX: M75.111 Incomplete rotator cuff tear or rupture of right shoulder, not specified as traumatic (principal); S43.411A Sprain of right coracohumeral (ligament), initial encounter; S43.491A Other sprain of right shoulder joint, initial encounter

== ENCOUNTER 2020-12-25 13:05 | Outpatient (CLI) | payer MEDICARE, OTHER ==
[2020-12-25 20:03] LABS: BASOPHILS # (AUTO) 0.1 10^3/uL (0.0-0.1); BASOPHILS % (AUTO) 0.9 %; EOSINOPHILS # (AUTO) 0.2 10^3/uL (0.0-0.7); EOSINOPHILS % (AUTO) 2.7 %; HCT - HEMATOCRIT 45.8 % (37.0-47.0); HGB - HEMOGLOBIN 14.9 g/dL (12.0-16.0); LYMPHOCYTES # (AUTO) 1.4 10^3/uL (1.5-3.5); LYMPHOCYTES % (AUTO) 20.2 %; MEAN CORPUSCULAR HEMOGLOBIN 31.5 pg (27.0-31.0); MEAN CORPUSCULAR HGB CONC 32.5 g/dL (32.0-36.0); MEAN CORPUSCULAR VOLUME 96.8 fL (81.0-99.0); MEAN PLATELET VOLUME 10.1 fL (7.9-10.8); MONOCYTES # (AUTO) 0.7 10^3/uL (0.0-1.0); MONOCYTES % (AUTO) 10.9 %; NEUTROPHILS # (AUTO) 4.3 10^3/uL (1.5-6.6); PLT - PLATELET COUNT 194 10^3/uL (130-450); RED BLOOD COUNT 4.73 10^6/uL (4.20-5.40); WHITE BLOOD COUNT 6.7 x10^3/uL (4.8-10.8)
[2020-12-25 20:07] LABS: BILIRUBIN,URINE NEGATIVE (NEGATIVE); GLUCOSE, URINE (UA) NEGATIVE (NEGATIVE); KETONES,URINE (UA) NEGATIVE (NEGATIVE); LEUKOCYTE ESTERASE, URINE NEGATIVE (NEGATIVE); NITRITE,URINE NEGATIVE (NEGATIVE); OCCULT BLOOD,URINE NEGATIVE (NEGATIVE); PH,URINE 6.5 PH (5.0-7.5); PROTEIN,URINE NEGATIVE (NEGATIVE); UROBILINOGEN,URINE 0.2 (NORMAL) E.U./dL (NORMAL)
[2020-12-25 20:09] LABS: INR 1.2 (0.8-1.2); PT - PROTHROMBIN TIME 13.6 secs (9.9-12.6)
[2020-12-25 20:14] LABS: ALBUMIN 3.8 g/dL (3.2-5.5); BILIRUBIN,TOTAL 0.6 mg/dL (0.2-1.0); CALCIUM 9.6 mg/dL (8.5-10.3); CREATININE 0.6 mg/dL (0.4-1.0); POTASSIUM 3.6 mmol/L (3.5-5.0); TOTAL PROTEIN 7.7 g/dL (6.7-8.2)
[2020-12-25 20:15] LABS: BACTERIA,URINE Few /HPF (None Seen); CLARITY,URINE CLEAR (CLEAR); RBC,URINE 0-5 /HPF (0-5); SQUAMOUS EPITHELIAL CELL,UR MOD Squamous (<= Few); WBC,URINE 0-3 /HPF (0-5)
[2020-12-25 20:17] LABS: PARTIAL THROMBOPLASTIN TIME 62.2 secs (24.9-33.3)
== END 2020-12-25 13:06 | disposition home or self-care (01) ==
LOC: LAB.S 13:05
PROVIDERS: ATTEND Internal Medicine
DX: Z01.812 Encounter for preprocedural laboratory examination (principal); M25.511 Pain in right shoulder
CPT/HCPCS: 36415; 80053; 81001; 82985; 85025; 85610; 85730; 87640

== ENCOUNTER 2021-12-09 10:38 | Outpatient (CLI) | payer MEDICARE, OTHER ==
--- NOTE | 2021-12-10 12:49 | Mammography Report ---
BILATERAL DIGITAL SCREENING MAMMOGRAM 3D/2D: 12/09/2021 CLINICAL: Routine screening. Comparison is made to exams dated: 03/31/2016 mammogram and 09/11/2014 mammogram - [facility]. Both breasts are almost entirely fatty (category a/<25% glandular tissue). Left breast implant is present. There are benign calcifications in the left breast. No significant masses, calcifications, or other findings are seen in either breast. There has been no significant interval change. IMPRESSION: BENIGN There is no mammographic evidence of malignancy. A 1 year screening mammogram is recommended. Based on the Tyrer Cuzick model (a risk assessment model) the patients lifetime risk is 1.7% and her 10 year risk is 0.0%. According to the ACR, ACS, and NCCN guidelines, an annual breast MRI exam mayank g with mammogram is recommended if the patients lifetime risk is 20% or greater. This exam was interpreted at Station ID: [id number]. NOTE: For mammograms, a report in lay terms will be sent to the patient. Approximately 15% of breast malignancies will not be visualized mammographically. In the management of a palpable breast mass, a negative mammogram must not discourage biopsy of a clinically suspicious lesion. Electronically Signed By: Swati browne/linda:12/09/2021 16:20:07 ACR BI-RADS Category 2: Benign Finding(s) 3342F PARENCHYMAL PATTERN: (F) - The breast(s) demonstrate(s) diffuse fatty replacement. BI-RADS CATEGORY: (2) - 2 RECOMMENDATION: (ANNUAL) - Recommend routine annual screening mammography. [id number] 1 year screening LATERALITY: (B)
== END 2021-12-09 10:39 | disposition home or self-care (01) ==
LOC: DI.S 10:38
PROVIDERS: ATTEND Internal Medicine
DX: Z12.31 Encounter for screening mammogram for malignant neoplasm of breast (principal); Z98.82 Breast implant status

== ENCOUNTER 2022-04-07 14:32 | Outpatient (CLI) | payer MEDICARE, OTHER ==
--- NOTE | 2022-04-07 18:16 | XRAY Report ---
PROCEDURE: Hip w/Pelvis 2-3V LT INDICATIONS: LEFT HIP PAIN TECHNIQUE: AP pelvis with lateral view(s) of the left hip(s). COMPARISON: Pelvis and right hip radiographs 05/31/2018, pelvis and left hip radiographs 03/18/2016 FINDINGS: Bones: Prior left hip arthroplasty. The hardware appears intact. No acute fractures or dislocations. Pelvic ring appears intact. No suspicious bony lesions. Degenerative changes of the right hip not overtly changed. Soft tissues: The visualized bowel gas pattern is normal. No suspicious soft tissue calcifications. IMPRESSION: Prior left hip arthroplasty. No acute fracture or dislocation visualized. If symptoms persist, follow-up radiographs and/or CT may be helpful for further evaluation. Reviewed by: Jagdish Parsons MD on 04/07/2022 6:15 PM PST Approved by: Jagdish Parsons MD on 04/07/2022 6:15 PM PST Station ID: [id number]
== END 2022-04-07 14:33 | disposition home or self-care (01) ==
LOC: DI.S 14:32
PROVIDERS: ATTEND Physician Assistant
DX: M25.552 Pain in left hip (principal); Z96.642 Presence of left artificial hip joint

== ENCOUNTER 2022-10-27 07:09 | Outpatient (CLI) | payer MEDICARE, OTHER ==
--- NOTE | 2022-10-27 16:40 | Ultrasound Report ---
PROCEDURE: Abdomen Limited INDICATIONS: ELEVATED LIVER ENZYMES TECHNIQUE: Real-time focused scanning was performed of the abdomen, with image documentation. COMPARISONS: CT abdomen pelvis 11/21/2015 FINDINGS: Liver: Liver is normal in size and increased in echotexture. Gallbladder: No stones. Wall thickness measures 2.4 mm Biliary ducts: Intrahepatic bile ducts are non-dilated. Extrahepatic bile duct caliber measures 6.7 mm. Normal is 6-7 mm or less in diameter, or 10 mm or less post-cholecystectomy. Pancreas: Visualized portions of the pancreas are sonographically normal. Right kidney: Normal in size and echotexture. Right kidney measures 12.1 cm long. No hydronephrosis or nephrolithiasis. No solid masses. No complex renal cystic lesions which require follow-up. Simple renal cyst measuring 10 mm. Aorta: Visualized aorta is normal in caliber at less than 3 cm. IVC: Intrahepatic inferior vena cava is patent. Miscellaneous: No free abdominal fluid. IMPRESSION: Hepatic steatosis. Reviewed by: Jazmine Nassar MD on 10/27/2022 4:39 PM PDT Approved by: Jazmine Nassar MD on 10/27/2022 4:39 PM PDT Station ID: [id number]
== END 2022-10-27 07:10 | disposition home or self-care (01) ==
LOC: DI 07:09
PROVIDERS: ATTEND Internal Medicine
DX: K76.0 Fatty (change of) liver, not elsewhere classified (principal)

== ENCOUNTER 2023-01-23 12:39 | Emergency (ER) | payer MEDICARE, OTHER ==
[2023-01-23 13:00] VITALS: BP 149/97; O2SAT 96
--- NOTE | 2023-01-23 13:19 | ED Physician Documentation ---
History of Present Illness - Stated complaint Stated Complaint: LT EYE BLOOD - Chief complaint Chief Complaint: Heent - History obtained from History obtained from: Patient - Additonal information Additional information: 82-year-old woman presents for the evaluation of initially eye redness. States that her left eye has been red for months but worsened last night with some blood blisters. Her vision is unaffected. As ancillary complaint she also noted some chronic vertigo when she rolls over in bed but more recently has developed what sounds like postural lightheadedness when she stands up culminating in a fall a couple of days ago. She has no chest pain or trouble breathing but she does feel fatigued all the time for about the last year. She has a history of hypertension and is on Xarelto. She had a remote stroke but says that she has no history of A-fib, so it is unclear to me why she is on Xarelto. She also has no history of DVT/PE. PD PAST MEDICAL HISTORY - Past Medical History Cardiovascular: Hypertension Endocrine/Autoimmune: HyPERthyroidism - Past Surgical History Past Surgical History: Yes General: Appendectomy Ortho: Hip replacement, ACL reconstruction, Spine surgery /DIRECTOR INSTITUTION: Hysterectomy - Present Medications Home Medications: Ambulatory Orders Medication Instructions Recorded Confirmed Duloxetine HCl [Cymbalta] 30 mg PO DAILY 10/07/14 10/07/14 Levothyroxine [Synthroid] 150 mcg PO ONCE 10/07/14 10/07/14 Metoprolol Succinate 50 mg PO DAILY 10/07/14 10/07/14 cycloSPORINE [Restasis] 1 drop EACHEYE ONCE 10/07/14 10/07/14 Ketotifen Fumarate 1 drops OP BID #5 ml 01/23/23 Rivaroxaban [Xarelto] 20 mg PO DAILY 01/23/23 01/23/23 - Allergies Allergies/Adverse Reactions: Allergies Allergy/AdvReac Type Severity Reaction Status Date / Time aspirin Allergy Anaphylaxis Verified 10/17/19 16:44 Penicillins Allergy Rash Verified 10/17/19 16:44 - Social History Does the pt smoke?: No Smoking Status: Never smoker Does the pt drink ETOH?: No Does the pt have substance abuse?: No - Immunizations Immunizations are current?: Yes - POLST Patient has POLST: No PD ED PE NORMAL - Vitals Vital signs reviewed: Yes - General General: Alert and oriented X 3, No acute distress - HEENT HEENT: PERRL, EOMI, Other (Diffuse conjunctivitis of the left eye with some small acute subconjunctival hemorrhages.) - Neck Neck: Supple, no meningeal sign, No bony TTP - Cardiac Cardiac: RRR, No murmur - Respiratory Respiratory: No respiratory distress, Clear bilaterally - Abdomen Abdomen: Non tender - Derm Derm: No rash - Neuro Neuro: Alert and oriented X 3, thermospray operator 2-12 intact Eye Opening: Spontaneous Motor: Obeys Commands Verbal: Oriented GCS Score: 15 Results - Vitals Vitals: Vital Signs - 24 hr 01/23/23 12:53 Temperature 36.5 C Heart Rate 74 Respiratory 16 Rate Blood Pressure 149/97 H O2 Saturation 96 Oxygen O2 Source Room air - EKG (time done) 1336 EKG releavant findings:: EKG personally interpreted by author of this note. Relevant findings are: Rate: Rate (enter#) (71) Rhythm: NSR [place]: Normal Intervals: Normal LA QRS: LVH Ischemia: Normal ST segments Computer interpretation: Agree with computer - Labs Labs: Laboratory Tests 01/23/23 01/23/23 13:45 13:45 WBC 6.1 RBC 4.67 Hgb 14.8 Hct 43.4 MCV 92.9 MCH 31.7 H MCHC 34.1 RDW 12.6 Plt Count 166 MPV 9.5 Neut # (Auto) 4.2 Lymph # (Auto) 1.2 L [place] # (Auto) 0.6 Eos # (Auto) 0.1 Baso # (Auto) 0.1 Absolute Nucleated RBC 0.00 Nucleated RBC % 0.0 Sodium 141 Potassium 3.5 Chloride 105 Carbon Dioxide 31 Anion Gap 5.0 L BUN 14 Creatinine 0.5 L Estimated GFR (MDRD) 119 Glucose 142 H Calcium 9.6 Total Bilirubin 0.7 AST 70 H ALT 37 Alkaline Phosphatase 114 Total Protein 7.0 Albumin 4.2 Globulin 2.8 Albumin/Globulin Ratio 1.5 PD Medical Decision Making - ED course ED course: Initial chief complaint was subacute left eye redness with some small subconjunctival hemorrhages. We will put on Zaditor and refer to ophthalmology. She is anticoagulated. Subsequently had a second/ancillary complaint of subacute dizziness with postural component culminating in a fall the other night without injury. Will check EKG and labs. EKG showing LVH, labs basically unremarkable except for modestly elevated blood sugar and AST. Patient states that she has a history of the high AST for unknown reasons. She does not drink alcohol. Will refer to ophthalmology for t he eye complaint given multiple subconjunctival hemorrhages and an underlying issue other than that in the setting of Xarelto anticoagulation and back to her PCP for consideration of echo given near syncopal episode and LVH. Departure - Departure Disposition: 01 Home, Self Care Clinical Impression: Dizziness Subconjunctival hemorrhage Qualifiers: Laterality: left Qualified Code(s): H11.32 - Conjunctival hemorrhage, left eye Condition: Stable Record reviewed to determine appropriate education?: Yes Instructions: ED Eye Injury Subconj Hemorrhage, ED Near Syncope Unkn Follow-Up: Sarai Cash MD [Primary Care Provider] - Aaron Sahni MD [Provider Admit Priv/Credential] - Prescriptions: Ketotifen Fumarate 1 drops OP BID #5 ml Comments: Your EKG does show evidence of left ventricular hypertrophy, and enlargement of the left side of the heart. This is a common finding in people with longstanding hypertension, but should be confirmed, would recommend you follow- up with Dr. Cash for discussion of your current symptoms and consideration for referral for echocardiogram. I would also Recommend you ask your retrimmer why you are on Xarelto since you do not apparently have an indication for it based on your history, i.e. no history of atrial fibrillation or DVT/PE. Your labs showed normal blood counts. Your blood sugar was modestly elevated at 142 and your AST was elevated at 70. The significance of this is questionable, the remainder of your liver enzymes were normal. As far as the eye goes I am writing for some anti-inflammatory eyedrops and would recommend you call the director safety listed on this form on Wednesday. Forms: PCP List Discharge Date/Time: 01/23/23 14:22
[2023-01-23 13:51] LABS: BASOPHILS # (AUTO) 0.1 10^3/uL (0.0-0.1); BASOPHILS % (AUTO) 0.8 %; EOSINOPHILS # (AUTO) 0.1 10^3/uL (0.0-0.7); EOSINOPHILS % (AUTO) 1.5 %; HCT - HEMATOCRIT 43.4 % (37.0-47.0); HGB - HEMOGLOBIN 14.8 g/dL (12.0-16.0); LYMPHOCYTES # (AUTO) 1.2 10^3/uL (1.5-3.5); LYMPHOCYTES % (AUTO) 19.8 %; MEAN CORPUSCULAR HEMOGLOBIN 31.7 pg (27.0-31.0); MEAN CORPUSCULAR HGB CONC 34.1 g/dL (32.0-36.0); MEAN CORPUSCULAR VOLUME 92.9 fL (81.0-99.0); MEAN PLATELET VOLUME 9.5 fL (7.9-10.8); MONOCYTES # (AUTO) 0.6 10^3/uL (0.0-1.0); NEUTROPHILS # (AUTO) 4.2 10^3/uL (1.5-6.6); NEUTROPHILS % (AUTO) 68.6 %; PLT - PLATELET COUNT 166 10^3/uL (130-450); RED BLOOD COUNT 4.67 10^6/uL (4.20-5.40); RED CELL DISTRIBUTION WIDTH 12.6 % (12.0-15.0); WHITE BLOOD COUNT 6.1 x10^3/uL (4.8-10.8)
[2023-01-23 14:06] LABS: ALBUMIN 4.2 g/dL (3.2-5.5); ALBUMIN/GLOBULIN RATIO 1.5 (1.0-2.2); BILIRUBIN,TOTAL 0.7 mg/dL (0.2-1.0); CALCIUM 9.6 mg/dL (8.5-10.3); CREATININE 0.5 mg/dL (0.6-1.3); POTASSIUM 3.5 mmol/L (3.5-4.5)
== END 2023-01-23 14:22 | disposition home or self-care (01) ==
LOC: ED 12:39
DX: H11.32 Conjunctival hemorrhage, left eye (principal); R42 Dizziness and giddiness; R55 Syncope and collapse; Z79.01 Long term (current) use of anticoagulants; I11.9 Hypertensive heart disease without heart failure; R74.01 Elevation of levels of liver transaminase levels; R73.9 Hyperglycemia, unspecified
CPT/HCPCS: 36415; 80053; 85025; 93005; 99283; 99284

== ENCOUNTER 2023-02-01 07:43 | Outpatient (CLI) | payer MEDICARE, OTHER ==
--- NOTE | 2023-02-01 16:33 | MRI Report ---
PROCEDURE: BRAIN WO INDICATIONS: LEFT VENTRICULAR HYPERTROPHY, VERTIGO TECHNIQUE: Noncontrast axial T1 spin echo, axial T2 fast spin echo, sagittal and axial FLAIR, coronal T2 fast sp in echo, axial gradient echo, axial diffusion and ADC through the brain. COMPARISON: None. FINDINGS: Image quality: Excellent. CSF Spaces: Basal cisterns are patent. No extra-axial fluid collections. Ventricles are normal in size and shape. Brain: No acute intracranial masses or hemorrhage. [place]/white matter interface is normal. Brainste m appears normal. Diffusion-weighted images demonstrate no acute ischemic insult. Mild diffuse cereb ral volume loss. Mild degree of patchy high FLAIR signal within the periventricular and subcortical w shae matter. Small chronic left anterior frontal lobe infarct inferiorly. There is a moderate chronic left parietal lobe infarct which demonstrates a small amount of low-grade echo signal intensity mate rial within it. Normal intravascular flow voids are present. Skull and face: Calvarium has normal marrow signal. Orbits appear normal. Sinuses: Sinuses and mastoids are clear. IMPRESSION: 1. Volume loss and small vessel ischemic disease. 2. Small chronic left frontal lobe infarct. 3. 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 No acute intracranial hemorrhage. Reviewed by: Noe Navarrete MD on 02/01/2023 4:32 PM PST Approved by: Noe Navarrete MD on 02/01/2023 4:32 PM PST Station ID: [id number]
== END 2023-02-01 07:44 | disposition home or self-care (01) ==
LOC: DI 07:43
PROVIDERS: ATTEND Internal Medicine
DX: I61.1 Nontraumatic intracerebral hemorrhage in hemisphere, cortical (principal); I51.7 Cardiomegaly; R42 Dizziness and giddiness; I67.82 Cerebral ischemia

== ENCOUNTER 2023-03-25 08:00 | Outpatient (CLI) | payer MEDICARE, OTHER | END 2023-03-25 08:01 | disposition home or self-care (01) | LOC: DI 08:00 | PROVIDERS: ATTEND Internal Medicine | DX: I51.7 Cardiomegaly (principal) | CPT/HCPCS: 93306 ==

== ENCOUNTER 2023-07-26 08:00 | Outpatient (CLI) | payer MEDICARE, OTHER ==
[2023-07-26 15:20] LABS: HCT - HEMATOCRIT 39.8 % (37.0-47.0); HGB - HEMOGLOBIN 12.8 g/dL (12.0-16.0); MEAN CORPUSCULAR HEMOGLOBIN 31.1 pg (27.0-31.0); MEAN CORPUSCULAR HGB CONC 32.2 g/dL (32.0-36.0); MEAN CORPUSCULAR VOLUME 96.8 fL (81.0-99.0); MEAN PLATELET VOLUME 10.4 fL (7.9-10.8); RED BLOOD COUNT 4.11 10^6/uL (4.20-5.40); RED CELL DISTRIBUTION WIDTH 13.1 % (12.0-15.0); WHITE BLOOD COUNT 6.8 x10^3/uL (4.8-10.8)
[2023-07-26 15:31] LABS: CALCIUM 9.8 mg/dL (8.5-10.3); CREATININE 0.6 mg/dL (0.6-1.3); POTASSIUM 4.3 mmol/L (3.5-4.5)
--- NOTE | 2023-07-26 19:13 | XRAY Report ---
PROCEDURE: Knee 2V LT INDICATIONS: CONTUSION OF LEFT LOWER LEG TECHNIQUE: 3 views of the knee(s) were acquired. COMPARISON: None. FINDINGS: Bones: No definite fracture or dislocation. Some transverse sclerosis of the proximal tibial epiphys is. Moderate tricompartmental joint space narrowing and juxta-articular osteophytosis. Chondrocalcino sis in the medial and lateral compartments. No suspicious bony lesions. Diffuse osseous demineralizat ion. Soft tissues: Small knee joint effusion. No suspicious soft tissue calcifications or masses. IMPRESSION: 1.No definite acute bony abnormality. Subtle transverse sclerosis of the proximal tibial epiphysis co uld represent a subtle fracture. If there remains a high clinical concern for fracture, consider cros s-sectional imaging now. If pain persists, recommend repeat x-ray in 10-14 days or cross-sectional im aging. 2.Moderate tricompartmental osteoarthritis. Reviewed by: Alberta Null MD on 07/26/2023 7:12 PM PDT Approved by: Alberta Null MD on 07/26/2023 7:12 PM PDT Station ID: [id number]
--- NOTE | 2023-07-27 09:20 | XRAY Report ---
PROCEDURE: Ankle 3+V LT INDICATIONS: CONTUSION OF LEFT LOWER LEG TECHNIQUE: 3 views of the ankle were acquired. COMPARISON: None. FINDINGS: Bones: ORIF of distal fibular fracture, likely remote. No acute fractures or dislocations. Ankle mo rtise is normally aligned. No suspicious bony lesions. Soft tissues: Soft tissue swelling. No tibiotalar joint effusion. Achilles tendon appears normal. Vascular calcifications consistent with atherosclerosis. IMPRESSION: 1. No acute bony abnormality. 2. Post surgical changes for ORIF of distal fibular fracture, probably remote. Recommend clinical cor relation. 3. Soft tissue swelling. 4. If clinical symptoms persist, consider advanced imaging such as CT or MRI. Reviewed by: Luis Renteria MD on 07/27/2023 9:18 AM PDT Approved by: Luis Renteria MD on 07/27/2023 9:18 AM PDT Station ID: [id number]
== END 2023-07-26 23:59 | disposition home or self-care (01) ==
LOC: DI.S 08:00
PROVIDERS: ATTEND Nurse Practitioner
DX: M17.12 Unilateral primary osteoarthritis, left knee (principal); S80.12XA Contusion of left lower leg, initial encounter; R22.42 Localized swelling, mass and lump, left lower limb
CPT/HCPCS: 36415; 80048; 85027; 85379

== ENCOUNTER 2023-07-27 08:45 | Emergency (ER) | payer MEDICARE, OTHER ==
[2023-07-27 09:03] VITALS: O2SAT 100
--- NOTE | 2023-07-27 09:08 | ED Physician Documentation ---
PD HPI LOWER EXT INJURY - Stated complaint Stated Complaint: LT LEG SWOLLEN - Chief complaint Chief Complaint: Ext Problem - History obtained from History obtained from: Patient - History of Present Illness PD HPI LOW EXT INJURY LOCATION: Left, Knee, Lower leg Type of injury: Fall Timing - onset: How many weeks ago (2) Timing - details: Abrupt onset (fell by stumbling 2 weeks ago and fell forward, striking left knee in particular but also some contact to head. has not had neuro symptoms but some headaches. Main issue is persistent bruising and tender over garg, with development of bruising colors and swelling down front of leg.) Worsened by: Palpating Associated symptoms: Swelling. No: Weakness, Numbness Contributing factors: Anticoagulated. No: Prior ortho surgery Similar symptoms before: Has not had sx before Recently seen: Clinic (Walk In yesterday and had blood test d-dimer done, which was told to her to be elevated and advised to come to ER for US to eval for DVT. 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: Hysterectomy - Present Medications Home Medications: Ambulatory Orders Medication Instructions Recorded Confirmed Duloxetine HCl [Cymbalta] 30 mg PO DAILY 10/07/14 07/27/23 Levothyroxine [Synthroid] 150 mcg PO DAILY 10/07/14 07/27/23 Metoprolol Succinate 50 mg PO BID 10/07/14 07/27/23 cycloSPORINE [Restasis] 1 drop EACHEYE BID 10/07/14 07/27/23 Ketotifen Fumarate 1 drops OP BID #5 ml 01/23/23 07/27/23 Rivaroxaban [Xarelto] 20 mg PO DAILY 01/23/23 07/27/23 Amlodipine Besylate [Norvasc] 2.5 mg PO BID 07/27/23 07/27/23 Atorvastatin Calcium [Lipitor] 80 mg PO HS 07/27/23 07/27/23 HYDROcod/ACETAM 5/325 [[place] 5/325] 1 ea PO Q6H PRN #20 tablet 07/27/23 Losartan Potassium 100 mg PO DAILY 07/27/23 07/27/23 - Allergies Allergies/Adverse Reactions: Allergies Allergy/AdvReac Type Severity Reaction Status Date / Time aspirin Allergy Anaphylaxis Verified 07/27/23 08:50 Penicillins Allergy Rash Verified 07/27/23 08:50 - Social History Does the pt smoke?: No Smoking Status: Never smoker Does the pt drink ETOH?: No Does the pt have substance abuse?: No - Immunizations Immunizations are current?: Yes - POLST Patient has POLST: No PD ED PE NORMAL - Vitals Vital signs reviewed: Yes - General General: Alert and oriented X 3, No acute distress, Well developed/nourished - Derm Derm: Normal color, Warm and dry - Extremities Extremities: Other (left infrapatellar area with swelling and tenderness with purple coloring, firmness of swelling, c/w hematoma. There is purple to green/yellow bruising and pitting edema along front of lower leg to ankle. Calf area not tender per se. No popliteal nor inner thigh tenderness. ) - Neuro Neuro: Alert and oriented X 3, No motor deficit, No sensory deficit, Normal speech Results - Vitals Vitals: Oxygen O2 Source Room air - Rads (name of study) head CT Relevant Findings:: Prelim report reviewed (no iCH nor acute injury. ), EMP independent interpretation of test Dubplex US left leg Relevant Findings:: Prelim report reviewed (no DVT), EMP independent interpretation of test PD Medical Decision Making - ED course Complexity details: reviewed old records (review of the D-Dimer done outpt was 386, which would technically be in normal range for customary usage of age adjusted levels, so normal for pt would be under 400. But was sent for concern of DVT clinically, so reasonable to still get it. ), reviewed results (head CT is without ICH/subdural. Leg US without DVT. ), considered differential (struck face/head and left knee with fall. Main compalint is still bruising left knee down front of leg with swelling and pain. Is on Xarelto. Has some N[place]ON. no neuro deficits. Seen at Walk in with elevated d-dimer and called to come to ED for US of leg. I feel still concern for intracranial bleed.), d/w patient Departure - Departure Disposition: 01 Home, Self Care Clinical Impression: Accidental fall, Anticoagulant long-term use, Facial contusion, Hematoma of lower leg Clinical Impression: (Ruled Out): Deep vein thrombosis Condition: Stable Record reviewed to determine appropriate education?: Yes Instructions: ED Hematoma Follow-Up: Sarai Cash MD [Primary Care Provider] - Prescriptions: HYDROcod/ACETAM 5/325 [[place] 5/325] 1 ea PO Q6H PRN #20 tablet PRN Reason: Pain Comments: Your head CT does not show any signs of acute bleeding or subacute bleeding. Chronic infarcts in age-related changes are noted. Your ultrasound does not show any blood clots in the leg. There is obviously hematoma and swelling in the front part of the leg and gravity would have allowed for the bruising to go down the front of the lower leg. Blood is irritating outside of blood vessels so causes swelling and capillary leakage. Use Ten wrap or loosely compressive sock to help with some of the swelling. Elevate and rested often periodically through the day. Activity as tolerated. Continue with your usual medications with the anticoagulant and Tylenol 4 times daily. I wrote a prescription for small amount hydrocodone to use every 8-12 hours if needed for worse pain periodically. Assuming the swelling keeps going down and such, I would not see any reason for not traveling 3 weeks from now for your trip. Recheck with your primary care or back to the ER if worsening swelling particularly in the back of the calf and thigh. Otherwise there still feels to be some swelling/hematoma in the front of the knee so it anticipate still further bruising down the front of the leg. You can use some warm towels periodically to the swollen area of the knee to help absorb the hematoma sooner. Forms: PCP List Discharge Date/Time: 07/27/23 12:04
[2023-07-27] MEDS: HYDROcod/ACETAM 5/325 MG TABLET PO STA (09:35)
--- NOTE | 2023-07-27 10:29 | CT Report ---
PROCEDURE: Head WO INDICATIONS: fall, struck head, on DOAC TECHNIQUE: Noncontrast 4.5 mm thick angled axial sections acquired from the foramen magnum to the vertex. For r adiation dose reduction, the following was used: automated exposure control, adjustment of mA and/or kV according to patient size. COMPARISON: 02/01/2023 FINDINGS: Image quality: Excellent. CSF spaces: Basal cisterns are patent. Prominence of the extra-axial spaces is again seen, right mor e prominent than left. Ventricles are normal in size and shape. Brain: No midline shift. No intracranial masses or hemorrhage. [place]-white matter interface is norm al. Age-appropriate brain parenchymal volume loss and chronic small vessel ischemic change can be se en. There is a remote infarct again seen involving the left parietal region. There is also a chronic infarct involving the anterior inferior aspect of the left frontal lobe. Skull and face: Calvarium and visualized facial bones are intact, without suspicious lesions. Hyper ostosis frontalis is incidentally noted, which is not frankly abnormal for a female patient of this a ge. Sinuses: Focal mild to moderate mucosal thickening can be seen involving the left ethmoid air cells. Postoperative change can be seen, with left-sided antrectomy. Visualized sinuses and mastoids are oth erwise clear. IMPRESSION: No francesco acute abnormality can be seen on this noncontrast head CT. No intracranial hemorrhage is seen. Negative for a displaced calvarial fracture. Remote infarcts are seen involving the anterior inferior left frontal lobe and the left frontal regio n. Additional findings: Focal left ethmoid sinus disease Prior left sinus antrectomy Reviewed by: Bridger Rondon MD on 07/27/2023 9:28 AM MADDI Approved by: Bridger Rondon MD on 07/27/2023 9:28 AM MADDI Station ID: [id number]
--- NOTE | 2023-07-27 11:15 | Ultrasound Report ---
PROCEDURE: Duplex Ext Veins Left INDICATIONS: bruising and swelling from fall 2 weeks ago TECHNIQUE: Real-time imaging, as well as color and pulse Doppler interrogation, were performed of the lower extr emity deep veins from the inguinal ligament to the popliteal fossa. Attempted visualization of the ca lf veins was performed. COMPARISON: None. FINDINGS: The deep veins are normally compressible, and free of intraluminal thrombus. Color and pu lse Doppler demonstrate normal phasic intraluminal flow. There is normal augmentation response to di stal compression maneuver. IMPRESSION: No deep venous thrombosis of the visualized lower extremity. Reviewed by: Josiah Ventura MD on 07/27/2023 11:14 AM PDT Approved by: Josiah Ventura MD on 07/27/2023 11:14 AM PDT Station ID: [id number]
[2023-07-27 12:10] VITALS: BP 147/82
== END 2023-07-27 12:04 | disposition home or self-care (01) ==
LOC: ED 08:45
DX: S00.83XA Contusion of other part of head, initial encounter (principal); S80.12XA Contusion of left lower leg, initial encounter; W01.0XXA Fall on same level from slipping, tripping and stumbling without subsequent striking against object, initial encounter; Z79.01 Long term (current) use of anticoagulants
CPT/HCPCS: 70450; 93971; 99284; A9270

== ENCOUNTER 2023-09-03 09:01 | Outpatient (CLI) | payer MEDICARE, OTHER ==
--- NOTE | 2023-09-03 10:49 | CT Report ---
PROCEDURE: Lower Extremity LT WO INDICATIONS: LEFT KNEE PAIN TECHNIQUE: Noncontrast 3-mm axial sections acquired from the distal tibial shaft to the talar dome, with coronal and sagittal reformats. For radiation dose reduction, the following was used: automated exposure c ontrol, adjustment of mA and/or kV according to patient size. COMPARISON: Radiograph on 07/26/2023. FINDINGS: Image quality: Excellent. Bones: No acute fracture or dislocation. Chondrocalcinosis, representing CPPD arthropathy. Moderate, lateral compartment predominant tricompartmental osteoarthritis. Small sclerotic lesion in the later al femoral condyle, nonspecific and may represent a bone island. Soft tissues: Small knee effusion. The quadriceps and the patellar tendon are unremarkable. Subcutan eous edema superficial to the patella tendon. Moderate-sized popliteal cyst. Impression: No acute fracture or dislocation of the left knee. Degenerative changes as described colin sharif Reviewed by: Bettie Yanes MD on 09/03/2023 10:48 AM PDT Approved by: Bettie Yanes MD on 09/03/2023 10:48 AM PDT Station ID: [id number]
== END 2023-09-03 09:02 | disposition home or self-care (01) ==
LOC: DI 09:01
PROVIDERS: ATTEND Internal Medicine
DX: M17.12 Unilateral primary osteoarthritis, left knee (principal); M11.262 Other chondrocalcinosis, left knee

== ENCOUNTER 2023-10-06 14:10 | Outpatient (CLI) | payer MEDICARE, OTHER | END 2023-10-06 23:59 | disposition critical access hospital (66) | LOC: EMS 14:10 | DX: S01.81XA Laceration without foreign body of other part of head, initial encounter (principal); W01.0XXA Fall on same level from slipping, tripping and stumbling without subsequent striking against object, initial encounter; Y93.01 Activity, walking, marching and hiking; Y92.009 Unspecified place in unspecified non-institutional (private) residence as the place of occurrence of the external cause; R51.9 Headache, unspecified; Z79.01 Long term (current) use of anticoagulants | CPT/HCPCS: A0425; A0429 ==

== ENCOUNTER 2023-10-06 14:37 | Emergency (ER) | payer MEDICARE, OTHER ==
--- NOTE | 2023-10-06 15:12 | ED Physician Documentation ---
PD HPI HEAD INJURY - Stated complaint Stated Complaint: GLF/HEAD INJURY - Chief complaint Chief Complaint: Trauma Hd/Nk - History obtained from History obtained from: Patient - History of Present Illness Mechanism of head injury: Fell (she states she just tripped and lost balance. No symptoms prior.) Timing - onset: Today Pain level max: 2 Pain level now: 2 Location of injury: Left, Front, Other (also left forearm abrasion but good ROM. denies neck pain and no cervical collar on.) Quality of pain: Throbbing, Aching Associated symptoms: No: LOC, AMS, Nausea / vomiting, Neck pain Symptoms worsen with: Palpation Contributing factors: Anticoagulated. No: Intoxicated Similar symptoms before: Has not had sx before PD PAST MEDICAL HISTORY - Past Medical History Past Medical History: Yes Cardiovascular: Hypertension Respiratory: None Neuro: CVA, Other Endocrine/Autoimmune: HyPERthyroidism GI: None AMF MECHANIC: None : Incontinence HEENT: Chronic vision loss Psych: Depression Musculoskeletal: Osteoarthritis Derm: None - Past Surgical History Past Surgical History: Yes General: Appendectomy Ortho: Hip replacement, ACL reconstruction, Shoulder arthroplasty, Spine surgery, Other /AMF MECHANIC: Hysterectomy - Present Medications Home Medications: Ambulatory Orders Medication Instructions Recorded Confirmed Duloxetine HCl [Cymbalta] 30 mg PO DAILY 10/07/14 07/27/23 Levothyroxine [Synthroid] 150 mcg PO DAILY 10/07/14 07/27/23 Metoprolol Succinate 50 mg PO BID 10/07/14 07/27/23 cycloSPORINE [Restasis] 1 drop EACHEYE BID 10/07/14 07/27/23 Ketotifen Fumarate 1 drops OP BID #5 ml 01/23/23 07/27/23 Rivaroxaban [Xarelto] 20 mg PO DAILY 01/23/23 07/27/23 Amlodipine Besylate [Norvasc] 2.5 mg PO BID 07/27/23 07/27/23 Atorvastatin Calcium [Lipitor] 80 mg PO HS 07/27/23 07/27/23 HYDROcod/ACETAM 5/325 [Frohna 5/325] 1 ea PO Q6H PRN #20 tablet 07/27/23 Losartan Potassium 100 mg PO DAILY 07/27/23 07/27/23 - Allergies Allergies/Adverse Reactions: Allergies Allergy/AdvReac Type Severity Reaction Status Date / Time aspirin Allergy Anaphylaxis Verified 10/06/23 14:41 Penicillins Allergy Rash Verified 10/06/23 14:41 - Social History Does the pt smoke?: No Smoking Status: Never smoker Does the pt drink ETOH?: No Does the pt have substance abuse?: No - Immunizations Immunizations are current?: Yes - POLST Patient has POLST: No PD ED PE NORMAL - Vitals Vital signs reviewed: Yes - General General: Alert and oriented X 3, No acute distress, Well developed/nourished - HEENT HEENT: PERRL, EOMI, Other (left frontal scalp with 2.5 cm lac to fatty layer. Some bleeding when turbin wrap removed. ) - Neck Neck: Supple, no meningeal sign, No bony TTP - Cardiac Cardiac: RRR, No murmur - Respiratory Respiratory: No respiratory distress, Clear bilaterally, Other (no chestwall tenderness. ) - Derm Derm: Normal color, Warm and dry - Extremities Extremities: Normal ROM s pain (left elbow woitht pain nor limitation on ROM. abrasion lateral forearm partial thickness without FB nor bleeding. Will clenase and bandage. ) - Neuro Neuro: Alert and oriented X 3, No motor deficit, No sensory deficit, Normal speech Results - Vitals Vitals: Oxygen O2 Source Room air - Rads (name of study) head CT Relevant Findings:: Prelim report reviewed (no ICH. ), EMP independent interpretation of test Procedures - Laceration (location) left frontal scalp Length in cm: 2.5 Wound type: Curved, Into subcut fat (with still some bleeding when turbin wrap removed.), Clean Anesthesia: Lidocaine 1% with epi Wound preparation: Wound explored, To the base, Other (cleansed with tap water.) Skin layer closure: Nylon, Running, Size #-0 - enter number (5) Other: Patient tolerated well, No complications, Tetanus UTD PD Medical Decision Making - ED course Complexity details: reviewed results (head CT without ICH. elbow injury does not seem bony and so no xray ordered. ), considered differential (on DOAC with head injury. No concussive symptoms.Alert and interactive, but still a concern for I CH so head CT ordred. Arm with good ROM and no limitations at the elbow. No signs of fracture. Skin abrasion just partial thickness. ), d/w patient Reviewed Lab Results: normal imaging. The elbow abrasion had just partial thickness missing skin. Clenased and wrapped by nursing. Departure - Departure Disposition: 01 Home, Self Care Clinical Impression: Anticoagulant long-term use, Scalp laceration, Old cerebrovascular accident (CVA) without late effect, Elbow abrasion Condition: Stable Instructions: ED Laceration All Comments: Your CT scan does not show any signs of acute bleeding or acute abnormalities. Seen were old areas of small strokes and a chronic hygroma which is fluid around the brain. No new abnormalities. The laceration on your scalp was sutured. It is okay to wash and shower. Clean off the wound twice a day with soap and water, or peroxide and water. Apply some antibiotic ointment to it to keep it moist. Also to watch for signs of infection such as purulence, redness or in creasing pain. Return to your primary care or the ER at the specified time for suture removal. Suture removal 8 to 10 days. For the elbow abrasion, the skin was just partial-thickness peeled off and mainly needs ointment and dressings and regular cleaning to or 3 times daily and slowly healing in. Tylenol if needed for pains. Forms: PCP List Discharge Date/Time: 10/06/23 17:50
--- NOTE | 2023-10-06 16:20 | CT Report ---
PROCEDURE: Head WO INDICATIONS: fell, head injury, on Xarelto TECHNIQUE: Noncontrast 4.5 mm thick angled axial sections acquired from the foramen magnum to the vertex. For r adiation dose reduction, the following was used: automated exposure control, adjustment of mA and/or kV according to patient size. COMPARISON: CT head 07/27/2023 FINDINGS: Image quality: Excellent. The ventricular system and cortical sulci demonstrate atrophy, consistent for patient's stated age. There are areas of hypodensity in the periventricular and subcortical white matter. Unchanged right chronic subdural hygroma. There is no acute intra or extra-axial fluid collection. No acute hemorrha ge, mass lesion or midline shift. Brainstem is unremarkable. Left posterior frontal parietal low at tenuation consistent with old infarction. Globes are symmetrical. Sinuses are aerated. Osseous structures are intact. IMPRESSION: 1. No acute intracranial process. 2. Moderate atrophy and chronic microvascular ischemic changes. Reviewed by: Jazmine Nassar MD on 10/06/2023 4:19 PM PDT Approved by: Jazmine Nassar MD on 10/06/2023 4:19 PM PDT Station ID: [id number]
[2023-10-06 18:14] VITALS: BP 128/70; O2SAT 98
== END 2023-10-06 17:50 | disposition home or self-care (01) ==
LOC: EDBD → ED 14:37
DX: S01.01XA Laceration without foreign body of scalp, initial encounter (principal); S50.812A Abrasion of left forearm, initial encounter; W01.0XXA Fall on same level from slipping, tripping and stumbling without subsequent striking against object, initial encounter; I10 Essential (primary) hypertension; E05.90 Thyrotoxicosis, unspecified without thyrotoxic crisis or storm; Z86.73 Personal history of transient ischemic attack (TIA), and cerebral infarction without residual deficits; Z79.01 Long term (current) use of anticoagulants; Z79.899 Other long term (current) drug therapy
CPT/HCPCS: 12001; 99283; 99284

== ENCOUNTER 2023-12-02 08:00 | Outpatient (CLI) | payer MEDICARE, OTHER | END 2023-12-02 23:59 | disposition home or self-care (01) | LOC: LAB.S 08:00 | PROVIDERS: ATTEND Emergency Medicine | DX: L02.215 Cutaneous abscess of perineum (principal) | CPT/HCPCS: 87070; 87205 ==